=== PATIENT | female | born 1960 | race Caucasian/White ===

== ENCOUNTER 2022-11-28 11:02 | Observation (INO) ==
[2022-11-28] MEDS ORDERED: SODIUM CHLORIDE 0.9% 1000ML 1,000 ML IV ONE (11:11)
[2022-11-28] MEDS ORDERED: MECLIZINE HCL 25 MG TAB PO STA (11:11)
--- NOTE | 2022-11-28 11:15 | Emergency Department Note ---
Impression & Plan Dizziness, Leukocytosis ED Provider Note NAME: NESTOR DIAZ AGE: 62 SEX: F : 1960 ARRIVES VIA: Ambulance INFORMANT: Patient ED PROVIDER(S): Omer Gunderson DO CHIEF COMPLAINT: Dizzy HPI: Patient is a 62-year-old female who presents to the ER following becoming dizzy earlier today. She notes she got up and she was feeling fine. She also started feeling the whole room spinning. She became very sick to her stomach started vomiting. When she lays still the dizziness goes away. When she is up moving around or moves her head and recurs. She denies any headache. No change or loss of vision. No chest pain or shortness of breath. Admits to nausea and vomiting. No weakness or numbness in her arms or legs. No other exacerbating or remitting factors. She has had this multiple times before in the past. She was getting this twice a year for several years and it abated for a bit. PAST MEDICAL HISTORY:See Below PAST SURGICAL HISTORY:See Below FAMILY HISTORY:See Below SOCIAL HISTORY:See Below HOME MEDICATIONS:See Below ALLERGIES:See Below VITALS:See Below PHYSICAL EXAMINATION: GENERAL: Sitting up in bed, alert, well appearing, well nourished, no distress, non-toxic EYE EXAM: normal conjunctiva. PERRL and EOM's intact. Horizontal nystagmus with rightward gaze to the left OROPHARYNX: no exudate, no erythema, lips, buccal mucosa, and tongue normal and mucous membranes are moist NECK: supple, no nuchal rigidity, no adenopathy, non-tender LUNGS: Clear to auscultation. Normal chest wall mechanics HEART: no murmurs, S1 normal and S2 normal ABDOMEN: abdomen soft, non-tender, normo-active bowel sounds, no masses, no rebound or guarding. BACK: Back is symmetrical on inspection and there is no deformity, no midline tenderness, no CVA tenderness. SKIN: no rashes and no bruising UPPER EXTREMITIES: upper extremities are grossly normal. LOWER EXTREMITIES: No pitting edema. NEURO EXAM: Normal sensorium, cranial nerves II-XII intact, normal speech, no weakness of arms, no weakness of legs. No drift. Finger to nose intact. Gross sensation intact. MEDICAL DECISION MAKING: Patient is a 62-year-old female who presents the ER for feeling dizzy. Upon arrival she is brought in by EMS. Vomiting. IV was established blood work was obtained. Labs show no significant leukocytosis or anemia. BMP with LFTs bilirubin and lipase was unremarkable. UA resulted after admission which showed some bacteria whites and leuks. She had no urinary symptoms. Will defer to the hospitalist. COVID was negative. She was given [address] angios of the head and neck showed aneurysms but no bleeds into the brain. She was comfortable so she was staying still but any movement made it worse and consequently she was discussed with the hospitalist for further evaluation management and treatment. Triage Nursing notes reviewed. Limited review of prior medical records performed Vital Signs: reviewed and remarkable for no significant abnormalities Differential diagnosis: Differential diagnosis includes etiologies such as benign positional vertigo, dehydration, hypovolemia, anemia, tumor, infection, hypoglycemia, electrolyte abnormalities, cardiac sources, intracerebral event, toxicologic, neurological, as well as others were entertained. ER treatment provided: See below Diagnostics interpreted by me include EKG and cardiac monitoring as listed bel ow: -Cardiac Monitoring: An order was placed for continuous cardiac monitoring. The monitor shows a rate of 70 with sinus rhythm. -ECG: Sinus rhythm rate of 70 Normal axis No PVCs QTc 438 -Laboratory studies:Interpreted by me as stated above in MDM and shown below. Imaging studies: Xrays: As interpreted by me:Portable AP upright 1 view of the chest shows no focal infiltrate CTs show: CT angios of the head and neck shows aneurysms but no bleeds. No obvious stroke. Consultation(s): As described in MDM discussed with the hospitalist for further evaluation management and treatment Procedures:none Critical Care: None Past Med/Surg History Social History Smoking Status: Never smoker Preferred Language: Yakut Feels Safe at Home: Yes Home Meds Home Medications Medication Instructions Recorded Confirmed celecoxib 200 mg capsule 200 mg PO DAILY PRN Pain 11/28/22 11/28/22 cholecalciferol (vitamin D3) 125 125 mcg PO DAILY 11/28/22 11/28/22 mcg (5,000 unit) tablet (Vitamin D3) cyclosporine 0.05 % eye drops in a 1 drp ophthalmic (eye) BID 11/28/22 11/28/22 dropperette (Restasis) levothyroxine 25 mcg tablet 12.5 mcg PO DAILY 11/28/22 11/28/22 pantoprazole 20 mg tablet,delayed 20 mg PO BID 11/28/22 11/28/22 release rosuvastatin 10 mg tablet 10 mg PO DAILY 11/28/22 11/28/22 sertraline 25 mg tablet 25 mg PO DAILY 11/28/22 11/28/22 Results & Data (ED) Vital Signs Vital Signs - 24 hr 11/28/22 11:16 11/28/22 11:16 11/28/22 11:16 Temperature 36.4 C L Temperature Source Oral Pulse Rate 63 Pulse Rate [Apical] 63 Pulse Rhythm Regular Pulse Rhythm [Apical] Regular Pulse Strength Normal Pulse Strength [Apical] Normal Respiratory Rate 16 16 Respiratory Effort / Characteristics Non-Labored Non-Labored Respiratory Depth Normal Normal Respiratory Pattern Regular Regular Blood Pressure 161/95 H Blood Pressure [Right Arm] 161/95 H Blood Pressure Mean 117 Blood Pressure Mean [Right Arm] 117 Blood Pressure Position Lying Pulse Oximetry 100 100 100 Oxygen Delivery Method Room Air Room Air Room Air Sepsis Recent Fever Within 48 Hours No Sepsis New/Unexplained Change in Mental Status No Sepsis Action Taken by Nursing No Action Required 11/28/22 11:20 11/28/22 11:31 11/28/22 12:01 Temperature Temperature Source Pulse Rate 76 66 69 Pulse Rate [Apical] Pulse Rhythm Pulse Rhythm [Apical] Pulse Strength Pulse Strength [Apical] Respiratory Rate 15 17 Respiratory Effort / Characteristics Respiratory Depth Respiratory Pattern Blood Pressure 193/91 H 142/69 H Blood Pressure [Right Arm] Blood Pressure Mean 125 93 Blood Pressure Mean [Right Arm] Blood Pressure Position Pulse Oximetry 100 100 Oxygen Delivery Method Sepsis Recent Fever Within 48 Hours Sepsis New/Unexplained Change in Mental Status Sepsis Action Taken by Nursing 11/28/22 15:00 Temperature Temperature Source Pulse Rate 68 Pulse Rate [Apical] Pulse Rhythm Pulse Rhythm [Apical] Pulse Strength Pulse Strength [Apical] Respiratory Rate 18 Respiratory Effort / Characteristics Respiratory Depth Respiratory Pattern Blood Pressure 159/79 H Blood Pressure [Right Arm] Blood Pressure Mean 105 Blood Pressure Mean [Right Arm] Blood Pressure Position Pulse Oximetry 99 Oxygen Delivery Method Room Air Sepsis Recent Fever Within 48 Hours Sepsis New/Unexplained Change in Mental Status Sepsis Action Taken by Nursing Laboratory Data 11/28/22 11:22 11/28/22 11:22 Lab Results 11/28/22 11/28/22 11/28/22 Range/Units 11:22 11:22 13:19 WBC 11.35 H (4.8-10.8) K/ul RBC 4.34 (4.20-5.40) M/uL Hgb 13.1 (12.0-16.0) g/dl Hct 38.8 (37.0-47.0) % MCV 89.4 (80.0-100.0) fL MCH 30.2 (25.0-34.0) pg MCHC 33.8 (32.0-36.0) g/dL RDW Std Deviation 44.2 (36.4-46.3) fL RDW Coeff of Crystal 13.4 (11.5-14.5) % Plt Count 388 (130-400) K/uL MPV 11.1 (9.4-12.4) fL Immature Gran % (Auto) 0.4 % Neut % (Auto) 72.3 % Lymph % (Auto) 18.4 % [place] % (Auto) 7.7 % Eos % (Auto) 0.8 % Baso % (Auto) 0.4 % Neut # (Auto) 8.20 H (1.40-6.50) K/uL Lymph # (Auto) 2.09 (1.2-3.4) K/uL [place] # (Auto) 0.87 H (0.11-0.59) K/uL Eos # (Auto) 0.09 (0-0.50) K/uL Baso # (Auto) 0.05 (0-0.2) K/uL Immature Gran # (Auto) 0.05 (0.01-0.20) K/uL Sodium 140 (136-145) mmol/L Potassium 3.9 (3.5-5.1) mmol/L Chloride 104 (98-107) mmol/L Carbon Dioxide 26 (21-32) mmol/L Anion Gap 10 (3-11) BUN 21 (6-23) mg/dl Creatinine 0.73 (0.6-1.2) mg/dl Est Cr Clr Drug Dosing 98.4 ml/min Est GFR ( Amer) 101.6 ml/min Est GFR (Non-Af Amer) 87.7 ml/min BUN/Creatinine Ratio 28.8 H (10-20) Glucose 152 H (70-99(Fasting)) mg/dl Calcium 9.1 (8.6-10.3) mg/dl Total Bilirubin 0.6 (0.2-1.0) mg/dl AST 12 L (13-39) U/L ALT 13 (7-52) U/L Alkaline Phosphatase 57 (34-104) U/L Troponin I High Sens 3.4 (0-14) pg/ml Total Protein 6.3 (6.0-8.3) gm/dl Albumin 3.7 (3.4-5.0) gm/dl Globulin 2.6 (2.5-4.0) gm/dl Albumin/Globulin Ratio 1.4 (0.9-2) Lipase 22 (11-82) U/L Urine Color Yellow Urine Appearance Slightly Cloudy (Clear) Urine pH 7.5 (4.5-7.5) Ur Specific Jackson 1.015 (1.000-1.030) Urine Protein Negative (Negative) Urine Glucose (UA) Negative (Negative) Urine Ketones Trace H (Negative) Urine Blood Negative (Negative) Urine Nitrite Negative (Negative) Urine Bilirubin Negative (Negative) Urine Urobilinogen Negative (Negative) Ur Leukocyte Esterase 1+ H (Negative) Urine RBC 0-4 (0-4) /hpf Urine WBC 5-10 H (0-5) /hpf Ur Epithelial Cells 5-10 H (0-5) /lpf Ur Renal Epithelial Cell 0-5 (0-5) /lpf Urine Bacteria 1+ H (Negative) SARS-CoV-2, RNA, NAAT (NEGATIVE) 11/28/22 Range/Units 14:22 WBC (4.8-10.8) K/ul RBC (4.20-5.40) M/uL Hgb (12.0-16.0) g/dl Hct (37.0-47.0) % MCV (80.0-100.0) fL MCH (25.0-34.0) pg MCHC (32.0-36.0) g/dL RDW Std Deviation (36.4-46.3) fL RDW Coeff of Crystal (11.5-14.5) % Plt Count (130-400) K/uL MPV (9.4-12.4) fL Immature Gran % (Auto) % Neut % (Auto) % Lymph % (Auto) % [place] % (Auto) % Eos % (Auto) % Baso % (Auto) % Neut # (Auto) (1.40-6.50) K/uL Lymph # (Auto) (1.2-3.4) K/uL [place] # (Auto) (0.11-0.59) K/uL Eos # (Auto) (0-0.50) K/uL Baso # (Auto) (0-0.2) K/uL Immature Gran # (Auto) (0.01-0.20) K/uL Sodium (136-145) mmol/L Potassium (3.5-5.1) mmol/L Chloride (98-107) mmol/L Carbon Dioxide (21-32) mmol/L Anion Gap (3-11) BUN (6-23) mg/dl Creatinine (0.6-1.2) mg/dl Est Cr Clr Drug Dosing ml/min Est GFR ( Amer) ml/min Est GFR (Non-Af Amer) ml/min BUN/Creatinine Ratio (10-20) Glucose (70-99(Fasting)) mg/dl Calcium (8.6-10.3) mg/dl Total Bilirubin (0.2-1.0) mg/dl AST (13-39) U/L ALT (7-52) U/L Alkaline Phosphatase (34-104) U/L Troponin I High Sens (0-14) pg/ml Total Protein (6.0-8.3) gm/dl Albumin (3.4-5.0) gm/dl Globulin (2.5-4.0) gm/dl Albumin/Globulin Ratio (0.9-2) Lipase (11-82) U/L Urine Color Urine Appearance (Clear) Urine pH (4.5-7.5) Ur Specific Jackson (1.000-1.030) Urine Protein (Negative) Urine Glucose (UA) (Negative) Urine Ketones (Negative) Urine Blood (Negative) Urine Nitrite (Negative) Urine Bilirubin (Negative) Urine Urobilinogen (Negative) Ur Leukocyte Esterase (Negative) Urine RBC (0-4) /hpf Urine WBC (0-5) /hpf Ur Epithelial Cells (0-5) /lpf Ur Renal Epithelial Cell (0-5) /lpf Urine Bacteria (Negative) SARS-CoV-2, RNA, NAAT NEGATIVE (NEGATIVE) Administered Medications Discontinued Medications Diazepam (Diazepam 5 Mg/Ml Inj 10ml Vial) 2.5 mg IV NOW STA Stop: 11/28/22 11:12 Last Admin: 11/28/22 11:24 Dose: 2.5 mg Documented By: ROSEMARY Diazepam (Diazepam 5 Mg/Ml Inj 10ml Vial) 2.5 mg IV NOW STA Stop: 11/28/22 13:20 Last Admin: 11/28/22 13:25 Dose: 2.5 mg Documented By: ROSEMARY Sodium Chloride (Nss 1000ml) 1,000 mls @ 999 mls/hr IV .Q1H1M ONE Stop: 11/28/22 12:11 Last Infusion: 11/28/22 13:42 Dose: 0 mls/hr Documented By: Admin: 11/28/22 11:24 Dose: 999 mls/hr Documented By: ROSEMARY Meclizine HCl (Meclizine Hcl 25 Mg Tab) 25 mg PO NOW STA Stop: 11/28/22 11:12 Last Admin: 11/28/22 11:24 Dose: 25 mg Documented By: ROSEMARY Imaging Data Radiologist's Impression: Head CTA 11/28/22 11:11 CT angio head wo/w CLINICAL HISTORY: dizzy COMPARISON STUDY: No previous studies for comparison. TECHNIQUE: Unenhanced and arterial phase imaging of the head was performed. Intravenous injection of 108 cc of Optiray 320 IV was uneventful. Sagittal and coronal reconstructions were viewed as well as maximal intensity projections on an independent 3-D workstation. Automated exposure control was utilized for the study. A dose lowering technique was utilized adhering to the principles of ALARA. FINDINGS: No acute intracranial hemorrhage, midline shift or mass effect is present. Brain volume is normal. Ventricular system is normal. Basal cisterns are patent. There are no extra-axial collections. Thompson-white differentiation is preserved. There are no findings to suggest acute dural sinus thrombosis or acute territorial infarct. There are no significant calvarial abnormalities. The bilateral M1, M2, A1 and A2 segments are patent. There is no central vessel occlusion. There are bilateral posterior communicating arteries. The right vertebral artery is dominant. The basilar artery and bilateral posterior cerebral arteries are patent. There is a possible tiny aneurysm measuring 1.6 mm of the distal left middle cerebral artery shown on axial image 111 of 233. There is a possible additional 1.5 mm aneurysm arising from the left aspect of the basilar artery on axial image 93. This could reflect an infundibulum. There is slight prominence of the basilar tip, measuring 3 mm. IMPRESSION: 1. No acute intracranial findings. 2. No central vessel occlusion. 3. A few possible tiny intracranial aneurysms, including a 1.6 mm distal left MCA aneurysm and an additional 1.5 mm basilar tip aneurysm. Slight prominence of basilar tip, measuring 3 mm. These findings are questionable significance. A follow-up CTA of the head in 6 months to ensure stability is recommended. ACT 112: Negative or not required by law. Electronically signed by: Sukh Ma M.D. 11/28/2022 1:11 PM Neck CTA 11/28/22 11:11 CT ANGIOGRAPHY OF THE NECK WITH CONTRAST CLINICAL HISTORY: dizzy COMPARISON STUDY: No previous studies for comparison. Technique: CT angiography of the carotid and vertebral arteries was obtained using Optiray and 3D reconstruction on an independent workstation. NASCET criteria was utilized. Automated exposure control was utilized for the study. A dose lowering technique was utilized adhering to the principles of ALARA. Findings: Visualized portions of the lung apices are unremarkable. There is no cervical lymphadenopathy. There is no cervical spine fracture. The bilateral common carotid, cervical internal carotid and vertebral arteries are patent. No plaque is identified. There is no stenosis within the major vessels of the neck. The right vertebral artery is dominant and patent. No dissection or aneurysm within the neck is noted. IMPRESSION: Unremarkable CTA of the neck. ACT 112: Negative or not required by law. Electronically signed by: Sukh Ma M.D. 11/28/2022 1:17 PM Chest X-Ray 11/28/22 13:13 XR chest 1V portable CLINICAL HISTORY: dizzy COMPARISON STUDY: No previous studies for comparison. FINDINGS: Lung volumes are normal. Lungs are clear. There is no pneumothorax or pleural effusion. Cardiac size is at upper limits of normal. Mediastinal contours are normal. There is no evidence for pulmonary edema. IMPRESSION: No acute cardiopulmonary findings. ACT 112: Negative or not required by law. Electronically signed by: Sukh Ma M.D. 11/28/2022 1:31 PM Discharge Plan Visit Data Chief Complaint: Nausea ED Provider: Omer Gunderson Discharge Problem: Dizziness, Leukocytosis Discharge Instructions Interventions: ED Discharge Assessment Last Done: 11/28/22 16:10 Forms Stand Alone Forms: [facility] Prescriptions Prescriptions: No Action celecoxib 200 mg capsule 200 mg PO DAILY PRN (Reason: Pain) levothyroxine 25 mcg tablet 12.5 mcg PO DAILY pantoprazole 20 mg tablet,delayed release (DR/EC) 20 mg PO BID sertraline 25 mg tablet 25 mg PO DAILY cyclosporine [Restasis] 0.05 % dropperette 1 drp ophthalmic (eye) BID rosuvastatin 10 mg tablet 10 mg PO DAILY cholecalciferol (vitamin D3) [Vitamin D3] 125 mcg (5,000 unit) tablet 125 mcg PO DAILY Referrals Referrals: PCP,NO [Physician] -
[2022-11-28 11:41] LABS: Basophils # (auto) 0.05 K/uL (0-0.2); Basophils % (auto) 0.4 %; Eosinophils # (auto) 0.09 K/uL (0-0.50); Eosinophils % (auto) 0.8 %; Hematocrit (blood only) 38.8 % (37.0-47.0); Hemoglobin 13.1 g/dl (12.0-16.0); Immature Granulocytes # (auto) 0.05 K/uL (0.01-0.20); Immature Granulocytes % (auto) 0.4 %; Lymphocytes # (auto) 2.09 K/uL (1.2-3.4); Lymphocytes % (auto) 18.4 %; Mean Corpuscular Hemoglobin 30.2 pg (25.0-34.0); Mean Corpuscular Hgb Conc 33.8 g/dL (32.0-36.0); Mean Corpuscular Volume 89.4 fL (80.0-100.0); Mean Platelet Volume 11.1 fL (9.4-12.4); Monocytes # (auto) 0.87 K/uL (0.11-0.59); Monocytes % (auto) 7.7 %; Neutrophils % (auto) 72.3 %; Platelet Count 388 K/uL (130-400); RDW Coefficient of Variation 13.4 % (11.5-14.5); RDW Standard Deviation 44.2 fL (36.4-46.3); Red Blood Count 4.34 M/uL (4.20-5.40); White Blood Count 11.35 K/ul (4.8-10.8)
[2022-11-28 11:58] LABS: Albumin Globulin Ratio 1.4 (0.9-2); Albumin Level 3.7 gm/dl (3.4-5.0); BUN Creatinine Ratio 28.8 (10-20); Bilirubin,Total 0.6 mg/dl (0.2-1.0); Calcium 9.1 mg/dl (8.6-10.3); Creatinine Clr Calc Pharmacy 98.4 ml/min; Est GFR (African American) 101.6 ml/min; Est GFR (Non-African American) 87.7 ml/min; Globulin 2.6 gm/dl (2.5-4.0); Potassium 3.9 mmol/L (3.5-5.1); Total Protein 6.3 gm/dl (6.0-8.3)
[2022-11-28 12:03] LABS: Troponin I High Sensitivity 3.4 pg/ml (0-14)
[2022-11-28] MEDS ORDERED: OPTIRAY 320 500ml IV ONE (12:40)
--- NOTE | 2022-11-28 13:14 | CT Scan Report ---
CT angio head wo/w CLINICAL HISTORY: dizzy COMPARISON STUDY: No previous studies for comparison. TECHNIQUE: Unenhanced and arterial phase imaging of the head was performed. Intravenous injection of 108 cc of Optiray 320 IV was uneventful. Sagittal and coronal reconstructions were viewed as well as maximal intensity projections on an independent 3-D workstation. Automated exposure control was utili [employer] for the study. A dose lowering technique was utilized adhering to the principles of ALARA. FINDINGS: No acute intracranial hemorrhage, midline shift or mass effect is present. Brain volume is normal. Ventricular system is normal. Basal cisterns are patent. There are no extra-axial collections . Thompson-white differentiation is preserved. There are no findings to suggest acute dural sinus thrombo sis or acute territorial infarct. There are no significant calvarial abnormalities. The bilateral M1, M2, A1 and A2 segments are patent. There is no central vessel occlusion. There are bilateral posteri or communicating arteries. The right vertebral artery is dominant. The basilar artery and bilateral p osterior cerebral arteries are patent. There is a possible tiny aneurysm measuring 1.6 mm of the dist al left middle cerebral artery shown on axial image 111 of 233. There is a possible additional 1.5 mm aneurysm arising from the left aspect of the basilar artery on axial image 93. This could reflect an infundibulum. There is slight prominence of the basilar tip, measuring 3 mm. IMPRESSION: 1. No acute intracranial findings. 2. No central vessel occlusion. 3. A few possible tiny intracranial aneurysms, including a 1.6 mm distal left MCA aneurysm and an add itional 1.5 mm basilar tip aneurysm. Slight prominence of basilar tip, measuring 3 mm. These findings are questionable significance. A follow-up CTA of the head in 6 months to ensure stability is recomm ended. ACT 112: Negative or not required by law. Electronically signed by: Sukh Ma M.D. 11/28/2022 1:11 PM
--- NOTE | 2022-11-28 13:19 | CT Scan Report ---
CT ANGIOGRAPHY OF THE NECK WITH CONTRAST CLINICAL HISTORY: dizzy COMPARISON STUDY: No previous studies for comparison. Technique: CT angiography of the carotid and vertebral arteries was obtained using Optiray and 3D rec onstruction on an independent workstation. NASCET criteria was utilized. Automated exposure control was utilized for the study. A dose lowering technique was utilized adhering to the principles of ALA RA. Findings: Visualized portions of the lung apices are unremarkable. There is no cervical lymphadenopat hy. There is no cervical spine fracture. The bilateral common carotid, cervical internal carotid and vertebral arteries are patent. No plaque is identified. There is no stenosis within the major vessels of the neck. The right vertebral artery is dominant and patent. No dissection or aneurysm within the neck is noted. IMPRESSION: Unremarkable CTA of the neck. ACT 112: Negative or not required by law. Electronically signed by: Sukh Ma M.D. 11/28/2022 1:17 PM
[2022-11-28 13:28] LABS: Appearance Urine Slightly Cloudy (Clear); Bilirubin Urine Negative (Negative); Blood Urine Negative (Negative); Color Urine Yellow; Glucose Urine UA Negative (Negative); Ketones Urine Trace (Negative); Leukocyte Esterase Urine 1+ (Negative); Nitrite Urine Negative (Negative); Protein Urine Negative (Negative); Specific Gravity Urine 1.015 (1.000-1.030); Urobilinogen Urine Negative (Negative); pH Urine 7.5 (4.5-7.5)
--- NOTE | 2022-11-28 13:32 | XRay Report ---
XR chest 1V portable CLINICAL HISTORY: dizzy COMPARISON STUDY: No previous studies for comparison. FINDINGS: Lung volumes are normal. Lungs are clear. There is no pneumothorax or pleural effusion. Car diac size is at upper limits of normal. Mediastinal contours are normal. There is no evidence for pul monary edema. IMPRESSION: No acute cardiopulmonary findings. ACT 112: Negative or not required by law. Electronically signed by: Sukh Ma M.D. 11/28/2022 1:31 PM
[2022-11-28 13:49] LABS: Bacteria Urine 1+ (Negative); RBC Urine 0-4 /hpf (0-4); Renal Epithelial Cells Urine 0-5 /lpf (0-5)
--- NOTE | 2022-11-28 14:38 | History & Physical Report ---
Date of Service November 28, 2022 Assessment & Plan (1) Dizziness: Plan: -Admit to med/tele -The patient is currently afebrile, hemodynamically stable and stable on RA -At this time the differential for her dizziness includes but is not limited to BPPV, menier's diseas, viral infection, malignancy -CTA of the neck was negative for acute findings -CTA of the head show's "possible tiny intracranial aneurysms, including a 1.6 mm distal left MCA aneurysm and an additional 1.5 mm basilar tip aneurysm." -Her symtpoms have improved with meclizine and valium but have not resolved and are exacerbated with any movement of her head/eyes -Will obtain an MRI of the brain WO con for further evaluation -Fall precautions ordered -50 mg PO meclizine q6h prn vertigo -PT/OT consults ordered, will have PT perform Gerald's maneuver if MRI of the brain is negative -BL SCD's and Sub-Q lovenox for DVT PPX -AM CBC, BMP, mag (2) Vertigo: (3) GERD (gastroesophageal reflux disease): Plan: -Contine pantoprazole (4) Hypothyroidism: Plan: -Continue levothyroxine (5) Anxiety: Plan: -Continue sertraline (6) Hyperlipidemia: Plan: -Continue crestor Plan The patient was discussed with Dr. Hughes at the time of the admission History of Present Illness Chief Complaint: Dizziness/nausea Primary Care Provider: Muna Ortiz is a 62 year old female with a PMH significant for vertigo, hypothyroidism, GERD, hyperlipidemia, anxiety, and vit D deficiency who presented to the [facility] ED on 11/28/22 with dizziness and nausea. In the ED the patients vitals were noted to be stable. WBC of 11 with left shift of 8, CMP WNL, high sen trop WNL, UA with trace ketone, 1+ LE, 5-10 WBC and Epithelial cells and 1+ bacteria. CTA of the head was read as A few possible tiny intracranial aneurysms, including a 1.6 mm distal left MCA aneurysm and an additional 1.5 mm basilar tip aneurysm. Slight prominence of basilar tip, measuring 3 mm. These findings are questionable significance. A follow-up CTA of the head in 6 months to ensure stability is recommended.. CTA of the neck and CXr were negative. The patient was given 1L NSS, 25 mg Meclizine, and 5 mg total of Valium prior to admission. At the time of the exam the patient was lying in bed in no acute distress with her son sitting bedside. She states that she had been in her normal state of health when she woke this am. She went to the kitchen and made breakfast without issue. Around 0900 she started experiencing severe dizziness/vertigo with nausea with any movement of her head. She states that the room was spinning but denies any other neurologic symptoms. Her symptoms would improve with rest and she took 2 doses of meclizine at home. However, her symptoms persisted, causing her to call EMS. She does have a distant history of vertigo, but she has not had an episode in the past 15 years. In the past her vertigo would resolve with a dose of meclizine. She was treated for a sinus infection in September with a course of Augmentin, which she completed. She states that her father from a Glioblastoma and is concerned that this could be causing her symptoms. She has no contraindications to a brain MRI and is in agreement with obtaining one for further evaluation. At the time of the exam she is asymptomatic at rest, but if she moves her head or eyes at all her symptoms return. She states that she woke up this am with a sore throat. Otherwise she denies recent fever, chills, headache, changes in smell, taste, hearing, chest pain, SOB, cough, abd pain, dysuria, hematuria, melena, LE swelling/weakness, and recent trauam. Please refer to Dr. Hughes's attestation for any changes to the treatment plan Allergies Allergy/AdvReac Type Severity Reaction Status Date / Time aspirin AdvReac Nose Bleed Verified 11/28/22 18:11 simvastatin AdvReac Muscle Pain Verified 11/28/22 18:11 Home Medications Medication Instructions Recorded Confirmed Type celecoxib 200 mg capsule 200 mg PO DAILY PRN Pain 11/28/22 11/28/22 History cholecalciferol (vitamin D3) 125 125 mcg PO DAILY 11/28/22 11/28/22 History mcg (5,000 unit) tablet (Vitamin D3) cyclosporine 0.05 % eye drops in a 1 drp ophthalmic (eye) BID 11/28/22 11/28/22 History dropperette (Restasis) levothyroxine 25 mcg tablet 12.5 mcg PO DAILY 11/28/22 11/28/22 History pantoprazole 20 mg tablet,delayed 20 mg PO BID 11/28/22 11/28/22 History release rosuvastatin 10 mg tablet 10 mg PO DAILY 11/28/22 11/28/22 History sertraline 25 mg tablet 25 mg PO DAILY 11/28/22 11/28/22 History Past Med/Surg History Medical History Anxiety GERD (gastroesophageal reflux disease) Hyperlipidemia Hypothyroidism Social History Smoking Status: Never smoker Hx Alcohol Use: No Hx Substance Use: No Preferred Language: Thai Communication Ability: Effective Director Business Required: No Beliefs That Will Affect Care: None Current Living Situation: Alone Feels Safe at Home: Yes Safety Concerns: Feels Safe At This Time Assistive Devices: None Physical Exam Physical Exam: Physical Exam: General: In no acute distress, stated age, well-nourished, good hygiene HEENT: Normocephalic, atraumatic, no tenderness to palpation of the frontal or maxillary sinuses, no scleral icterus, pupils around round, symmetrical, and reactive to light, moist mucus membranes, trachea midline, no thyromegaly Chest/Pulm: No respiratory distress, symmetrical chest expansion, clear breath sounds throughout Cardiac: RRR, no murmurs noted Abdomen: Negative for ascites and bruising, normoactive bowel sounds, soft, non-tender to palpation throughout Musculoskeletal: Symmetrical and without signs of acute trauma, upper and lower extremities with full ROM, no atrophy, spasticity, or flaccidity Extremities: Radial, dorsalis pedis, and posterior tibial pulses are intact and symmetrical, no edema noted in the BL LE's Skin: Warm, dry, no rashes , lesions, or scars noted Neuro: Alert and oriented to person, place, month, year, and president, no focal defects, CN II-XII tested, patient's symptoms return with EOM testing, no nystagmus noted, negative pronator drift but patient became nauseous during testing, no tremors noted Psych: No acute distress, calm and cooperative during the exam Results & Data Results & Data Vital Signs (Past 12 Hours) Vital Signs Temp Pulse Pulse Resp BP BP Pulse Ox 11/28/22 12:01 69 17 142/69 H 100 11/28/22 11:31 66 15 193/91 H 100 11/28/22 11:20 76 11/28/22 11:16 100 11/28/22 11:16 63 16 161/95 H 100 11/28/22 11:16 36.4 C L 63 16 161/95 H 100 O2 Del Method 11/28/22 12:01 11/28/22 11:31 11/28/22 11:20 11/28/22 11:16 Room Air 11/28/22 11:16 Room Air 11/28/22 11:16 Room Air Laboratory Results Abnormal lab results 11/28/22 11/28/22 11/28/22 Range/Units 11:22 11:22 13:19 WBC 11.35 H (4.8-10.8) K/ul Neut # (Auto) 8.20 H (1.40-6.50) K/uL Saline # (Auto) 0.87 H (0.11-0.59) K/uL BUN/Creatinine Ratio 28.8 H (10-20) Glucose 152 H (70-99(Fasting)) mg/dl AST 12 L (13-39) U/L Urine Ketones Trace H (Negative) Ur Leukocyte Esterase 1+ H (Negative) Urine WBC 5-10 H (0-5) /hpf Ur Epithelial Cells 5-10 H (0-5) /lpf Urine Bacteria 1+ H (Negative) Diagnostic Findings Head CTA 11/28/22 11:11 CT angio head wo/w CLINICAL HISTORY: dizzy COMPARISON STUDY: No previous studies for comparison. TECHNIQUE: Unenhanced and arterial phase imaging of the head was performed. Intravenous injection of 108 cc of Optiray 320 IV was uneventful. Sagittal and coronal reconstructions were viewed as well as maximal intensity projections on an independent 3-D workstation. Automated exposure control was utilized for the study. A dose lowering technique was utilized adhering to the principles of ALARA. FINDINGS: No acute intracranial hemorrhage, midline shift or mass effect is present. Brain volume is normal. Ventricular system is normal. Basal cisterns are patent. There are no extra-axial collections. Thompson-white differentiation is preserved. There are no findings to suggest acute dural sinus thrombosis or acute territorial infarct. There are no significant calvarial abnormalities. The bilateral M1, M2, A1 and A2 segments are patent. There is no central vessel occlusion. There are bilateral posterior communicating arteries. The right vertebral artery is dominant. The basilar artery and bilateral posterior cerebral arteries are patent. There is a possible tiny aneurysm measuring 1.6 mm of the distal left middle cerebral artery shown on axial image 111 of 233. There is a possible additional 1.5 mm aneurysm arising from the left aspect of the basilar artery on axial image 93. This could reflect an infundibulum. There is slight prominence of the basilar tip, measuring 3 mm. IMPRESSION: 1. No acute intracranial findings. 2. No central vessel occlusion. 3. A few possible tiny intracranial aneurysms, including a 1.6 mm distal left MCA aneurysm and an additional 1.5 mm basilar tip aneurysm. Slight prominence of basilar tip, measuring 3 mm. These findings are questionable significance. A follow-up CTA of the head in 6 months to ensure stability is recommended. ACT 112: Negative or not required by law. Electronically signed by: Sukh Ma M.D. 11/28/2022 1:11 PM Neck CTA 11/28/22 11:11 CT ANGIOGRAPHY OF THE NECK WITH CONTRAST CLINICAL HISTORY: dizzy COMPARISON STUDY: No previous studies for comparison. Technique: CT angiography of the carotid and vertebral arteries was obtained using Optiray and 3D reconstruction on an independent workstation. NASCET criteria was utilized. Automated exposure control was utilized for the study. A dose lowering technique was utilized adhering to the principles of ALARA. Findings: Visualized portions of the lung apices are unremarkable. There is no cervical lymphadenopathy. There is no cervical spine fracture. The bilateral common carotid, cervical internal carotid and vertebral arteries are patent. No plaque is identified. There is no stenosis within the major vessels of the neck. The right vertebral artery is dominant and patent. No dissection or aneurysm within the neck is noted. IMPRESSION: Unremarkable CTA of the neck. ACT 112: Negative or not required by law. Electronically signed by: Sukh Ma M.D. 11/28/2022 1:17 PM Chest X-Ray 11/28/22 13:13 XR chest 1V portable CLINICAL HISTORY: dizzy COMPARISON STUDY: No previous studies for comparison. FINDINGS: Lung volumes are normal. Lungs are clear. There is no pneumothorax or pleural effusion. Cardiac size is at upper limits of normal. Mediastinal contours are normal. There is no evidence for pulmonary edema. IMPRESSION: No acute cardiopulmonary findings. ACT 112: Negative or not required by law. Electronically signed by: Sukh Ma M.D. 11/28/2022 1:31 PM ECG Additional Comments: Poor data quality, interpretation may be adversely affected Sinus rhythm with Premature atrial complexes Otherwise normal ECG No previous ECGs available Code Status & VTE Plan Code Status Full code VTE Prophylaxis Plan VTE Prophylaxis will be ordered: Yes Supervising Physician Co-Signing Physician Notes I personally saw and examined the patient. I verified all robledo points and agree with Magdiel Jara PA-C with the following exceptions and/or additions: 62 year old female admission for vertigo. Acute onset following URI illness with sore throat and nasal congestion. Improved since admission when seen on the march but not yet resolved. O/E A&Ox3, PERRL, no nystagmus, hannah-halpike not performed, CN 2-> intact, no pronator drift, no extremity weakness or change in sensation, HS RRR, Chest CTAB, Abdo SNT A/P Suspect vestibular neuritis given recent URI symptoms - Hx of migraines but none for years making this etiology less. Given no significant repeated episodes consistent with BPPV (remote history of vertigo previously but none recent) will get brain MRI to r/o stroke given sudden onset, age > 60 years old and hyperlipidemia. Utilize meclizine acutely but warned patient continued ongoing use can actually hamper recovery from vestibular neuritis. PG Care Time/CCT Total # of Minutes Spent Total Time Spent with Patient: Total time spent is greater than 50% in coordination of care (as documented) at patient's floor/unit and/or counseling patient: Coding [place] [address] INT INP/OBS CARE 2/55MIN Patient Type Established Medical Decision Making Moderate Complexity Diagnoses Dizziness R42 Vertigo R42 GERD (gastroesophageal reflux disease) K21.9 Hypothyroidism E03.9 Anxiety F41.9 Hyperlipidemia E78.5
[2022-11-28] MEDS ORDERED: ACETAMINOPHEN 325 MG TAB PO PRN (16:39)
--- NOTE | 2022-11-28 17:10 | Electrocardiogram Report ---
Test Reason : Blood Pressure : / mmHG Vent. Rate : 070 BPM Atrial Rate : 070 BPM P-R Int : 124 ms QRS Dur : 074 ms QT Int : 406 ms P-R-T Axes : 053 051 063 degrees QTc Int : 438 ms Poor data quality, interpretation may be adversely affected Sinus rhythm with Premature atrial complexes Otherwise normal ECG No previous ECGs available Confirmed by Ezra Limon ([id number]) on 11/28/2022 5:10:25 PM Referred By: REFERRED SELF Confirmed By:Ezra Limon
[2022-11-28] MEDS ORDERED: ONDANSETRON INJ 2 MG/ML 2 ML VIAL IV STA (18:15)
[2022-11-28] MEDS ORDERED: COUGH DROP (SUGAR FREE) LOZ 24 LOZ/1 BOX BUCCAL PRN (18:20)
[2022-11-28] MEDS: PANTOprazole 40 MG TAB PO SCH (20:03)
[2022-11-29] MEDS ORDERED: GADOBUTROL 65ML VIAL IV ONE (01:20)
--- NOTE | 2022-11-29 03:30 | Magnetic Resonance Report ---
Exam(s): MRI HEAD W/WO Contrast IV Amt: 11cc gadavist EXAM: MR Head Without and With Intravenous Contrast CLINICAL HISTORY: Vertigo. TECHNIQUE: Magnetic resonance images of the head/brain without and with intravenous contrast in multiple planes. CONTRAST: Patient received 11cc gadavist of IV contrast COMPARISON: No relevant prior studies available. FINDINGS: Brain: Unremarkable. No acute infarct. No intracranial hemorrhage, mass-effect or midline shift. No abnormal enhancement. Ventricles: Unremarkable. No ventriculomegaly. Bones/joints: Unremarkable. Sinuses: Unremarkable as visualized. No acute sinusitis. Mastoid air cells: Unremarkable as visualized. No mastoid effusion. Orbits: Unremarkable as visualized. IMPRESSION: Normal head/brain MRI. Electronically signed by: Macarena Garcia MD 11/29/22 03:29 AM
[2022-11-29] MEDS: LEVOTHYROXINE SODIUM 25 MCG TABLET PO SCH (05:26)
[2022-11-29 07:44] LABS: Basophils # (auto) 0.06 K/uL (0-0.2); Basophils % (auto) 0.7 %; Eosinophils # (auto) 0.15 K/uL (0-0.50); Eosinophils % (auto) 1.7 %; Hematocrit (blood only) 38.3 % (37.0-47.0); Hemoglobin 12.4 g/dl (12.0-16.0); Immature Granulocytes # (auto) 0.02 K/uL (0.01-0.20); Immature Granulocytes % (auto) 0.2 %; Lymphocytes # (auto) 2.63 K/uL (1.2-3.4); Lymphocytes % (auto) 29.9 %; Mean Corpuscular Hemoglobin 30.2 pg (25.0-34.0); Mean Corpuscular Hgb Conc 32.4 g/dL (32.0-36.0); Mean Corpuscular Volume 93.4 fL (80.0-100.0); Mean Platelet Volume 11.2 fL (9.4-12.4); Monocytes # (auto) 0.79 K/uL (0.11-0.59); Neutrophils # (auto) 5.15 K/uL (1.40-6.50); Neutrophils % (auto) 58.5 %; Platelet Count 358 K/uL (130-400); RDW Coefficient of Variation 13.6 % (11.5-14.5); RDW Standard Deviation 46.5 fL (36.4-46.3)
[2022-11-29 08:07] LABS: Albumin Globulin Ratio 1.7 (0.9-2); Albumin Level 3.8 gm/dl (3.4-5.0); BUN Creatinine Ratio 25.3 (10-20); Bilirubin,Total 0.5 mg/dl (0.2-1.0); Creatinine Clr Calc Pharmacy 89.1 ml/min; Est GFR (African American) 92.3 ml/min; Est GFR (Non-African American) 79.7 ml/min; Globulin 2.2 gm/dl (2.5-4.0); Magnesium 2.3 mg/dl (1.7-2.4); Potassium 4.3 mmol/L (3.5-5.1)
[2022-11-29] MEDS: PANTOprazole 40 MG TAB PO SCH ×2 (08:51→20:35)
[2022-11-29] MEDS: SERTRALINE HCL 50 MG TABLET PO SCH (08:52)
[2022-11-29] MEDS: ROSUVASTATIN CALCIUM 10 MG TAB PO SCH (08:55)
[2022-11-29] MEDS: ONDANSETRON INJ 2 MG/ML 2 ML VIAL IV PRN ×2 (10:06→15:30)
[2022-11-29] MEDS: MECLIZINE HCL 25 MG TAB PO PRN ×2 (13:09→20:51)
--- NOTE | 2022-11-29 14:19 | Hospitalist Progress Note ---
Date of Service November 29, 2022 Assessment & Plan (1) Dizziness: Plan: Presents with dizziness associated with nausea, no other focal neurological symptoms Suspect BPPV -CTA of the neck was negative for acute findings -CTA of the head show's "possible tiny intracranial aneurysms, including a 1.6 mm distal left MCA aneurysm and an additional 1.5 mm basilar tip aneurysm. Slight prominence of the basilar tip, measuring 3 mm" -MRI of the brain with contrast negative for stroke or tumor -Symptoms continue to improve with meclizine and valium as well as Zofran for nausea-residual but improved since admission -Continue meclizine-we will give a dose now, Zofran as needed -Appreciate PT/OT evaluations with Gerald maneuvers -Stay again overnight and if dizziness improved, will discharge in the morning (2) GERD (gastroesophageal reflux disease): Plan: Continue PPI No acute issues (3) Hypothyroidism: Plan: TSH normal Continue home levothyroxine (4) Anxiety: Plan: No acute issues Continue home sertraline (5) Hyperlipidemia: Plan: Continue statin Plan DVT prophylaxis-add Lovenox Disposition-continued stay, likely discharge tomorrow Admission and Anticipated Discharge Date Admission Date: November 28, 2022 Subjective Patient still having some dizziness but is definitely improved from yesterday. Some nausea associate with dizziness. Tends to be more with looking to the right and with going from lying to sitting position. No chest pains or shortness of breath, no headache or visual changes. No numbness or weakness or speech issues. Nausea was improved with Zofran and she was able to eat lunch but she wanted to stay overnight 1 more night to make sure her dizziness was improved. Telemetry with normal sinus rhythm with rates in the 60s to 70s Review of Systems Review of Systems: No urinary symptoms-no dysuria or frequency, no abdominal pain Physical Exam Constitutional: WD/WN, vitals as above Eyes: PERRL, conjunctivae normal, anicteric sclerae EOM intact bilaterally; no anisocoria and no nystagmus Respiratory: normal respiratory effort, lungs clear to auscultation Cardiovascular: RRR, no murmur, no edema Gastrointestinal (Abdomen): normal bowel sounds, soft, nontender, no hepatosplenomegaly Neurologic: PERRL, EOMI, accommodation nl, no face palsy, no dysarthria m oves all extremities; no focal motor deficits Motor/Sensory: no tremor Psychiatric: A+Ox3, euthymic affect Results & Data Results & Data Vital Signs (Past 12 Hours) Vital Signs Temp Pulse Pulse Resp BP Pulse Ox O2 Del Method 11/29/22 11:35 36.9 C 64 18 130/81 96 Room Air 11/29/22 11:24 36.7 C 62 18 133/80 97 Room Air 11/29/22 07:56 36.8 C 64 18 143/84 H 95 Room Air 11/29/22 06:01 63 11/29/22 03:57 36.7 C 58 L 20 164/79 H 95 Room Air Laboratory Results CBC, CMP, urine culture reviewed PG Care Time/CCT Total # of Minutes Spent Total Time Spent with Patient: Total time spent is greater than 50% in coordination of care (as documented) at patient's floor/unit and/or counseling patient: Coding Level of Care Code 62171 SUB INP/OBS CARE 2/35MIN Diagnoses Dizziness R42 GERD (gastroesophageal reflux disease) K21.9 Hypothyroidism E03.9 Anxiety F41.9 Hyperlipidemia E78.5
[2022-11-29] MEDS: ENOXAPARIN INJ 40 MG/0.4 ML SYR SQ SCH (20:33)
[2022-11-29] MEDS: Patient's ALLERGY Info needs ENTERED SCH ×4 (20:42→23:05)
[2022-11-30] MEDS: LEVOTHYROXINE SODIUM 25 MCG TABLET PO SCH (05:40)
[2022-11-30] MEDS: MECLIZINE HCL 25 MG TAB PO PRN ×2 (05:41→12:37)
[2022-11-30] MEDS: ENOXAPARIN INJ 40 MG/0.4 ML SYR SQ SCH (06:01)
[2022-11-30 07:08] LABS: Basophils # (auto) 0.07 K/uL (0-0.2); Basophils % (auto) 0.8 %; Eosinophils # (auto) 0.18 K/uL (0-0.50); Hematocrit (blood only) 38.6 % (37.0-47.0); Hemoglobin 12.4 g/dl (12.0-16.0); Immature Granulocytes # (auto) 0.03 K/uL (0.01-0.20); Immature Granulocytes % (auto) 0.3 %; Lymphocytes % (auto) 30.5 %; Mean Corpuscular Hemoglobin 30.2 pg (25.0-34.0); Mean Corpuscular Hgb Conc 32.1 g/dL (32.0-36.0); Mean Corpuscular Volume 93.9 fL (80.0-100.0); Mean Platelet Volume 11.3 fL (9.4-12.4); Monocytes # (auto) 0.87 K/uL (0.11-0.59); Monocytes % (auto) 9.5 %; Neutrophils # (auto) 5.22 K/uL (1.40-6.50); Neutrophils % (auto) 56.9 %; Platelet Count 349 K/uL (130-400); RDW Coefficient of Variation 13.5 % (11.5-14.5); RDW Standard Deviation 46.3 fL (36.4-46.3); Red Blood Count 4.11 M/uL (4.20-5.40); White Blood Count 9.17 K/ul (4.8-10.8)
[2022-11-30 07:18] LABS: Albumin Globulin Ratio 1.7 (0.9-2); Albumin Level 3.8 gm/dl (3.4-5.0); BUN Creatinine Ratio 22.6 (10-20); Bilirubin,Total 0.4 mg/dl (0.2-1.0); Calcium 9.2 mg/dl (8.6-10.3); Creatinine Clr Calc Pharmacy 83.8 ml/min; Est GFR (African American) 85.7 ml/min; Globulin 2.3 gm/dl (2.5-4.0); Potassium 4.5 mmol/L (3.5-5.1); Total Protein 6.1 gm/dl (6.0-8.3)
[2022-11-30] MEDS: PANTOprazole 40 MG TAB PO SCH (08:23)
[2022-11-30] MEDS: SERTRALINE HCL 50 MG TABLET PO SCH (08:23)
[2022-11-30] MEDS: ROSUVASTATIN CALCIUM 10 MG TAB PO SCH (08:24)
[2022-11-30] MEDS ORDERED: PSEUDOEPHEDRINE HCL 30 MG TAB PO ONE (13:08)
--- NOTE | 2022-11-30 13:19 | Discharge Summary ---
Date of Service November 30, 2022 Admission HPI Per Admitting Provider Diana is a 62 year old female with a PMH significant for vertigo, hypothyroidism, GERD, hyperlipidemia, anxiety, and vit D deficiency who presented to the [facility] ED on 11/28/22 with dizziness and nausea. In the ED the patients vitals were noted to be stable. WBC of 11 with left shift of 8, CMP WNL, high sen trop WNL, UA with trace ketone, 1+ LE, 5-10 WBC and Epithelial cells and 1+ bacteria. CTA of the head was read as A few possible tiny intracranial aneurysms, including a 1.6 mm distal left MCA aneurysm and an additional 1.5 mm basilar tip aneurysm. Slight prominence of basilar tip, measuring 3 mm. These findings are questionable significance. A follow-up CTA of the head in 6 months to ensure stability is recommended.. CTA of the neck and CXr were negative. The patient was given 1L NSS, 25 mg Mec lizine, and 5 mg total of Valium prior to admission. At the time of the exam the patient was lying in bed in no acute distress with her son sitting bedside. She states that she had been in her normal state of health when she woke this am. She went to the kitchen and made breakfast without issue. Around 0900 she started experiencing severe dizziness/vertigo with nausea with any movement of her head. She states that the room was spinning but denies any other neurologic symptoms. Her symptoms would improve with rest and she took 2 doses of meclizine at home. However, her symptoms persisted, cau sing her to call EMS. She does have a distant history of vertigo, but she has not had an episode in the past 15 years. In the past her vertigo would resolve with a dose of meclizine. She was treated for a sinus infection in September with a course of Augmentin, which she completed. She states that her father from a Glioblastoma and is concerned that this could be causing her symptoms. She has no contraindications to a brain MRI and is in agreement with obtaining one for further evaluation. At the time of the exam she is asymptomatic at rest, but if she moves her head or eyes at all her symptoms return. She states that she woke up this am with a sore throat. Otherwise she denies recent fever, chills, headache, changes in smell, taste, hearing, chest pain, SOB, cough, abd pain, dysuria, hematuria, melena, LE swelling/weakness, and recent trauam. Please refer to Dr. Hughes's attestation for any changes to the treatment plan Principal Diagnosis BPPV Discharge Exam Constitutional WD/WN, vitals as above Eyes EOM intact bilaterally; no anisocoria and no nystagmus Respiratory normal respiratory effort, lungs clear to auscultation Cardiovascular RRR, no murmur, no edema Gastrointestinal (Abdomen) normal bowel sounds, soft, nontender, no hepatosplenomegaly Neurologic PERRL, EOMI, accommodation nl, no face palsy, no dysarthria moves all extremities; no focal motor deficits Motor/Sensory: no tremor Psychiatric A+Ox3, euthymic affect Discharge Data Allergies Allergy/AdvReac Type Severity Reaction Status Date / Time aspirin AdvReac Nose Bleed Verified 11/29/22 08:01 simvastatin AdvReac Muscle Pain Verified 11/29/22 08:01 Consultations 11/28/22 14:16 ED Decision to Admit Stat Ordered Studies 11/28/22 11:11 CT angio head wo/w Stat CT angio neck with con Stat 11/29/22 00:41 MR brain wo/w con Urgent Hospital Course (1) Dizziness: Presents with dizziness associated with nausea, no other focal neurological symptoms Suspect BPPV -CTA of the neck was negative for acute findings -CTA of the head show's "possible tiny intracranial aneurysms, including a 1.6 mm distal left MCA aneurysm and an additional 1.5 mm basilar tip aneurysm. Slight prominence of the basilar tip, measuring 3 mm" -MRI of the brain with contrast negative for stroke or tumor -Symptoms continue to improve with meclizine and valium as well as Zofran for nausea-residual but greatly improved since admission. She has been taught Gerald maneuvers by physical therapy, is ambulating independently. -Continue meclizine as needed on discharge, continue Gerald maneuvers at home -Appreciate PT/OT evaluations -Recommend follow-up with neurology as an outpatient but mostly for the aneurysms as per patient's request (2) Cerebral arterial aneurysm: As above, recommend follow-up CT angiogram of the head in 3 to 6 months Follow-up with neurology These are not related to her ongoing symptoms and are asymptomatic, incidental findings (3) GERD (gastroesophageal reflux disease): Continue PPI No acute issues (4) Hypothyroidism: TSH normal Continue home levothyroxine (5) Anxiety: Having some increased anxiety as a close friend of hers recently after a prolonged hospitalization. Her friend's is today, the day of discharge. Continue home sertraline Follow-up with PCP, recommend grief counseling (6) Hyperlipidemia: Continue statin Plan DVT prophylaxis- Lovenox Disposition-medically stable for discharge to home Total Time Total Time Spent Total Time Spent (In Minutes): 35 minutes Discharge Plan Discharge Items Patient Disposition: Home - Self-Care Reason For Visit: DIZZINESS/NAUSEA Discharge Diagnosis: Vertigo (BPPV) Condition on Discharge: Good Activity: As commented below Bathing: No limitations Exercise/Sports: Gradually increase as tolerated Driving/Machine Use: No driving until vertigo resolved Non-emergency contact: Primary Care Provider and Neurologist Call non-emergency contact if: you have any medication questions and your symptoms worsen Follow-up/Referrals: Aaron Celeste MD [Physician] - 03/01/23 1:00 pm (THIS APPOINTMENT WILL BE WITH GAGE.) Muna Field PA-C [Primary Care Provider] - (PLEASE CALL YOUR PRIMARY CARE PROVIDER TO SCHEDULE A DISCHARGE FOLLOW-UP APPOINTMENT WITHIN 7-10 DAYS) Diet: Regular Addtl Attending Provider Instructions: You can continue to take meclizine as needed and perform Gerald maneuvers to help improve your vertigo. You had testing which showed you did NOT have a stroke. You have a couple tiny aneurysms of the blood vessels in your brain-these are not causing you any problems. You should have a CT angiogram of the head in 3-6 months to assess these for stability. You can follow up with Dr. Celeste of Neurology for this. Pending Studies at Discharge: No Stand-Alone Forms: [employer], Work/School Release, Smoking Cessation Medications and DC Order Prescriptions: New meclizine 25 mg Tablet 25 mg PO Q6H PRN (Reason: dizziness) Qty: 30 0RF Continued celecoxib 200 mg capsule 200 mg PO DAILY PRN (Reason: Pain) levothyroxine 25 mcg tablet 12.5 mcg PO DAILY pantoprazole 20 mg tablet,delayed release (DR/EC) 20 mg PO BID sertraline 25 mg tablet 25 mg PO DAILY cyclosporine [Restasis] 0.05 % dropperette 1 drp ophthalmic (eye) BID rosuvastatin 10 mg tablet 10 mg PO DAILY cholecalciferol (vitamin D3) [Vitamin D3] 125 mcg (5,000 unit) tablet 125 mcg PO DAILY Discharge Orders: Discharge Order (Routine); Ordered 11/30/22 Ordered By: Tegan Barton Admission Data Admit Date/Time: 11/28/22 14:40 Attending Provider: Tegan Barton Admit Provider: Omar Hughes Primary Care Provider: Muna Field Other Providers: Omar Hughes Other Interventions: Discharge Summary Assessment (RN) Last Done: 11/30/22 14:37 Coding Level of Care Code 93878 INP/OBS DISCH >30 MIN Diagnoses Dizziness R42 Cerebral arterial aneurysm I67.1 GERD (gastroesophageal reflux disease) K21.9 Hypothyroidism E03.9 Anxiety F41.9 Hyperlipidemia E78.5
== END 2022-11-30 16:03 | disposition home or self-care (01) ==
LOC: ED 11:02 → 2N 11:02 → SUATTDRO 14:40 → MERGE 14:40 → 2N 16:10